=== PATIENT | female | born 1930 | race Caucasian/White ===

== ENCOUNTER → 2016-10-03 | Outpatient (CLI) | payer BC ==
[~2016-10-03] MED LIST: CALC500C70 PO; CHOL20009 PO; HYDR-5688 PO; IBAN150T PO; LEVO112T2 PO; MULT-190 PO; MULT-513 PO; OMEG10007 PO; SYN100 PO; TIMO0.2528 OPB; TIMO0.2530 OP
[2016-10-03 15:53] LABS: BASO % 0.2 %; BASO ABS # 0.02 K/uL (0-0.2); COMPLETE YES; EOS % 2.1 %; HEMATOCRIT 42.9 % (37-47); IG% 0.2 %; LYMPH ABS # 1.45 K/uL (1.2-3.4); MEAN CELL VOLUME 99.1 fL (80-100); MEAN CORPUSCULAR HEMOGLOBIN 31.9 pg (25-34); MEAN CORPUSCULAR HGB CONC 32.2 g/dl (32-36); MEAN PLATELET VOLUME 10.6 fL (7.4-10.4); MONO % 10.4 %; NEUT % 71.1 %; PLATELET COUNT 195 K/uL (130-400); RED BLOOD COUNT 4.33 M/uL (4.2-5.4); WHITE BLOOD COUNT 9.06 K/uL (4.8-10.8)
[2016-10-03 16:03] LABS: BLOOD UREA NITROGEN 24 mg/dl (7-18); BUN/CREATININE RATIO 28.3 (10-20); CALCIUM 10.2 mg/dl (8.5-10.1); CARBON DIOXIDE 31 mmol/L (21-32); CHLORIDE 102 mmol/L (98-107); CREATININE 0.84 mg/dl (0.60-1.20); GLUCOSE 91 mg/dl (70-99); SODIUM 139 mmol/L (136-145)
== END | disposition home or self-care (01) ==
LOC: C.LAB1850 14:30
PROVIDERS: ATTEND Internal Medicine
DX: E83.52 Hypercalcemia (principal); E03.9 Hypothyroidism, unspecified; E21.3 Hyperparathyroidism, unspecified

== ENCOUNTER → 2016-12-27 | Outpatient (CLI) | payer BC ==
[~2016-12-27] MED LIST changes: -TIMO0.2530 OP; +TIMO4SOL2 OP
[2016-12-27 12:58] LABS: BLOOD UREA NITROGEN 18 mg/dl (7-18); BUN/CREATININE RATIO 25.9 (10-20); CALCIUM 10.6 mg/dl (8.5-10.1); CARBON DIOXIDE 34 mmol/L (21-32); CHLORIDE 106 mmol/L (98-107); CREATININE 0.69 mg/dl (0.60-1.20); GLUCOSE 86 mg/dl (70-99); POTASSIUM 4.1 mmol/L (3.5-5.1); SODIUM 143 mmol/L (136-145)
== END | disposition home or self-care (01) ==
LOC: C.LAB1850 11:34
PROVIDERS: ATTEND Internal Medicine
DX: E03.9 Hypothyroidism, unspecified (principal); E21.3 Hyperparathyroidism, unspecified

== ENCOUNTER → 2017-01-13 | Outpatient (CLI) | payer BC ==
--- NOTE | 2017-01-13 16:01 | MAMMOGRAPHY REPORT ---
BILATERAL DIGITAL SCREENING MAMMOGRAM WITH CAD: 01/13/2017 CLINICAL HISTORY: Routine screening. Patient has no complaints. TECHNIQUE: Bilateral CC and MLO views were obtained. Current study was also evaluated with a Compute r Aided Detection (CAD) system. COMPARISON: Comparison is made to exams dated: 01/10/2016 mammogram, 08/18/2014 mammogram, 06/22/2013 ma mmogram, 05/21/2012 mammogram, 04/30/2011 mammogram, and 01/24/2010 mammogram - [facility] enter. BREAST COMPOSITION: The tissue of both breasts is heterogeneously dense, which may obscure small mas ses. FINDINGS: There is a new grouping of microcalcifications in the upper outer anterior left breast, fo r which additional spot magnification views are recommended. There is minimal vascular calcification in the anterior right breast. No other suspicious mass, arch itectural distortion or cluster of microcalcifications is seen bilaterally. IMPRESSION: ACR BI-RADS CATEGORY 0: INCOMPLETE EVALUATION: NEED ADDITIONAL IMAGING EVALUATION The new grouping of microcalcifications in the upper outer anterior left breast needs additional eval uation. The patient will be called to schedule an appointment. Approximately 10% of breast cancers are not detected with mammography. A negative mammographic report should not delay biopsy if a clinically suggestive mass is present. Ita Cardoza M.D. ay/:01/13/2017 14:20:32 Hog Killer: Suzette MARIA(R)(M)(BD), [facility] letter sent: Addl Imaging 0 BI-RADS Code: ACR BI-RADS Category 0: Incomplete Evaluation: Need Additional Imaging Evaluation
== END ==
LOC: C.MAMM 13:58
PROVIDERS: ATTEND Obstetrics & Gynecology
DX: Z12.31 Encounter for screening mammogram for malignant neoplasm of breast (principal)

== ENCOUNTER 2017-01-20 12:24 | Emergency (ER) | payer BC ==
[~2017-01-20] VITALS: Ht 160 cm; Wt 47.4 kg
[~2017-01-20 12:24] MED LIST changes: -CHOL20009 PO; -HYDR-5688 PO; -IBAN150T PO; -LEVO112T2 PO; -TIMO4SOL2 OP
[2017-01-20 12:33] VITALS: TEMP 36.4; Ht 160 cm; Wt 47.4 kg
[2017-01-20] MEDS ORDERED: HYDROCODONE/ACETAMOPHEN 5/325MG TAB PO STA (12:46)
[2017-01-20] MEDS ORDERED: IBAN150T PO (12:56)
[2017-01-20] MEDS ORDERED: CHOL20009 PO (12:56)
[2017-01-20] MEDS ORDERED: LEVO112T2 PO (12:56)
[2017-01-20] MEDS ORDERED: TIMO4SOL2 OP (12:56)
--- NOTE | 2017-01-20 13:14 | EMERGENCY ROOM VISIT NOTE ---
ED Visit Note First contact with patient: 12:39 I have seen and examined this patient with Angely Burch and generally agree with the treatment plan as discussed. Problem List Medical Problems: (1) Thyroidectomy Status: Resolved Current/Historical Medications Scheduled Calcium/Vitamin D (Os-Jaxson 500 Plus D), 1 TAB PO DAILY Cholecalciferol (Vitamin D), 4,000 UNITS PO DAILY Fish Oil ([place]so[place]-3), 1 CAP PO DAILY Ibandronate Sodium (Boniva), 150 MG PO MONTHLY Levothyroxine Sodium (Synthroid), 112 MCG PO DAILY Multivitamins/Minerals (Mvi With Minerals), 1 TAB PO DAILY Ocuvite Preservision (Ocuvite Preservision), 2 TAB PO DAILY Miscellaneous Medications Timolol Maleate (Ophth) (Timolol Maleate Ophthalmi), 1 DROP OP Allergies Coded Allergies: No Known Allergies (Unverified , 01/20/17) Vital Signs Date Time Temp Pulse Resp B/P (MAP) Pulse Ox O2 Delivery O2 Flow Rate FiO2 01/20/17 12:33 36.4 66 17 177/84 97 Room Air Medications Administered Medications (Trade) Dose Ordered Sig/Harry Route Start Time Stop Time Status Last Admin Dose Admin Acetaminophen/ Hydrocodone Bitart ([place] 5/325 Tab) 1 tab NOW STAT PO 01/20/17 12:46 01/20/17 12:48 DC 01/20/17 12:51 1 TAB Departure Information Referrals Pro,Sharif Tai M.D. (PCP) Patient Instructions My [facility]
--- NOTE | 2017-01-20 13:33 | DIAGNOSTIC IMAGING REPORT ---
LEFT RIBS UNILATERAL WITH PA CHEST CLINICAL HISTORY: Left rib injury with pain. COMPARISON STUDY: None. FINDINGS: No pleural effusions. No pneumothorax. The lungs are hyperexpanded with apical predominant emphysematous changes. The heart is normal in size. Biapical reticulonodular thickening is likely chronic. Slightly displaced left lateral fourth through seventh rib fractures. IMPRESSION: Left lateral fourth through seventh rib fractures. No pneumothorax. Electronically signed by: Chester Rueda M.D. 01/20/2017 1:32 PM Dictated Date/Time: 01/20/2017 1:28 PM
[2017-01-20] MEDS ORDERED: HYDR-5688 PO (14:21)
[2017-01-20 14:24] VITALS: BP 157/81; PULSE 69; O2SAT 96
--- NOTE | 2017-01-20 15:42 | EMERGENCY ROOM VISIT NOTE ---
History First contact with patient: 12:39 Chief Complaint: FALL Stated Complaint: FELL-LAC. ON ARM, SORE CHEST, POSS. CRACKED RIB History of Present Illness The patient is a 86 year old female who presents to the Emergency Room with complaints of left rib pain and left arm laceration. The patient states that she went to get out of the bathtub this morning and lost her balance and struck her left forearm on the sharp metal edge of the top of and landed on her left ribs. The patient denies any dizziness prior to fall. The patient denies any shortness of breath. The patient's tetanus is up-to-date. The patient states that she was having a mammogram this morning and they noticed the open area on her left arm and watch the area and applied bandages. She also commented on her left rib pain and they told her to come to the emergency room. Review of Systems 10 system review was performed and was negative unless stated otherwise history of present illness. Past Medical/Surgical History Medical Problems: (1) Thyroidectomy Social History Smoking Status: Never Smoker Alcohol Use: occasionally Marital Status: Occupation Status: retired Current/Historical Medications Scheduled Calcium/Vitamin D (Os-Jaxson 500 Plus D), 1 TAB PO DAILY Cholecalciferol (Vitamin D), 4,000 UNITS PO DAILY Fish Oil ([place]-3), 1 CAP PO DAILY Ibandronate Sodium (Boniva), 150 MG PO MONTHLY Levothyroxine Sodium (Synthroid), 112 MCG PO DAILY Multivitamins/Minerals (Mvi With Minerals), 1 TAB PO DAILY Ocuvite Preservision (Ocuvite Preservision), 2 TAB PO DAILY Scheduled PRN Hydrocodone/Acetaminophen 5MG/325MG ([place] 5MG/325MG), 1 TABLET PO Q6 PRN for Pain Miscellaneous Medications Timolol Maleate (Ophth) (Timolol Maleate Ophthalmi), 1 DROP OP Allergies Coded Allergies: No Known Allergies (Unverified , 01/20/17) Physical Exam Vital Signs Date Time Temp Pulse Resp B/P (MAP) Pulse Ox O2 Delivery O2 Flow Rate FiO2 01/20/17 14:24 69 18 157/81 96 01/20/17 12:33 36.4 66 17 177/84 97 Room Air Pain Rating (0-10): 4.0 Physical Exam GENERAL: 86-year-old white female appears younger than stated age. She is in no acute distress. MENTAL Status: Alert and oriented 3. NECK: Supple, no lymphadenopathy noted. No carotid bruits noted. LUNGS: Clear auscultation without wheezes rales or rhonchi. CARDIAC: Regular rate and rhythm without murmur. Pulses is full and equal throughout. CHEST WALL: No gross bony deformity noted. No erythema or edema noted. The patient is severely tender to palpation over the left lateral lower ribs. Otherwise chest wall is nontender. LEFT FOREARM: There is approximately a 5 cm skin tear on the medial aspect of the forearm. The wound looks clean. Medical Decision & Procedures ER Provider Diagnostic Interpretation: LEFT RIBS UNILATERAL WITH PA CHEST CLINICAL HISTORY: Left rib injury with pain. COMPARISON STUDY: None. FINDINGS: No pleural effusions. No pneumothorax. The lungs are hyperexpanded with apical predominant emphysematous changes. The heart is normal in size. Biapical reticulonodular thickening is likely chronic. Slightly displaced left lateral fourth through seventh rib fractures. IMPRESSION: Left lateral fourth through seventh rib fractures. No pneumothorax. Electronically signed by: Chester Rueda M.D. 01/20/2017 1:32 PM Medications Administered Medications (Trade) Dose Ordered Sig/Harry Route Start Time Stop Time Status Last Admin Dose Admin Acetaminophen/ Hydrocodone Bitart ([place] 5/325 Tab) 1 tab NOW STAT PO 01/20/17 12:46 01/20/17 12:48 DC 01/20/17 12:51 1 TAB ED Course The patient was evaluated. The patient was given [place] 5/325 mg one tablet by mouth for pain. X-ray of the left ring was ordered and interpreted by the radiologist as above with fractures involving the left fourth through seventh ribs. The patient was informed of the findings. The left forearm skin tear was cleansed and Steri-Strips applied. Antibiotic ointment and a bandage was applied. The patient was also informed that her blood pressure was elevated at 177/84 on arrival to the ER and that she would require a blood pressure recheck at her family doctor in 2 days. The patient verbalized understanding. The patient was independently evaluated by Dr. Piper who agreed with treatment plan. I discussed with the patient the option of admission due to the multiple rib fractures. The patient refused. The patient was discharged home in stable condition. Medical Decision Differential diagnosis include rib contusion versus rib fracture Impression Primary Impression: Ribs, multiple fractures Additional Impression: Skin tear of left forearm without complication Departure Information Dispostion Home / Self-Care Condition GOOD Prescriptions Hydrocodone/Acetaminophen 5MG/325MG ([place] 5MG/325MG) Tab 1 TABLET PO Q6 Y for Pain, #12 TAB For Initial Treatment Prov: Alix Burch PA-C 01/20/17 Forms HOME CARE DOCUMENTATION FORM, IMPORTANT VISIT INFORMATION Patient Instructions My [facility] [place] Additional Instructions Take [place] as directed for pain. Do not drive while taking the [place]. Spirometry several times a day for 10 days. Keep Steri-Strips in place until they fall off. Keep wound dry. Antibiotic ointment and a bandage for 3 days. Any signs of infection, follow-up with your family doctor. Recommend follow-up with your family doctor in 2 days for blood pressure check since her blood pressure in the emergency room initially was 177/84. Problem Qualifiers Primary Impression: Ribs, multiple fractures Encounter type: initial encounter Fracture type: closed Laterality: left Qualified Codes: S22.42XA - Multiple fractures of ribs, left side, initial encounter for closed fracture Additional Impression: Skin tear of left forearm without complication Encounter type: initial encounter Qualified Codes: S51.812A - Laceration without foreign body of left forearm, initial encounter
== END 2017-01-20 14:25 | disposition home or self-care (01) ==
LOC: C.EDB 12:26 → C.EDD 14:25
DX: S22.42XA Multiple fractures of ribs, left side, initial encounter for closed fracture (principal); S51.812A Laceration without foreign body of left forearm, initial encounter; W19.XXXA Unspecified fall, initial encounter; Y92.012 Bathroom of single-family (private) house as the place of occurrence of the external cause; Z79.899 Other long term (current) drug therapy; R92.0 Mammographic microcalcification found on diagnostic imaging of breast

== ENCOUNTER → 2017-01-20 | Outpatient (CLI) | payer BC ==
--- NOTE | 2017-01-20 13:13 | MAMMOGRAPHY REPORT ---
UNILATERAL LEFT DIGITAL DIAGNOSTIC MAMMOGRAM: 01/20/2017 CLINICAL HISTORY: 86-year-old woman called back from screening mammography for a possible new groupin g of microcalcifications in the left upper outer anterior breast. Possible history of breast cancer in the patient's mother. TECHNIQUE: Spot magnification left CC and ML views were obtained. COMPARISON: Comparison is made to exams dated: 01/13/2017 mammogram, 01/10/2016 mammogram, 08/18/2014 mamm ogram, 06/22/2013 mammogram, 05/21/2012 mammogram, and 04/30/2011 mammogram - [facility] nter. BREAST COMPOSITION: The tissue of the left breast is heterogeneously dense, which may obscure small masses. FINDINGS: There is a new small grouping of 3 round and punctate microcalcifications in the upper out er anterior left breast. On the full-field screening mammogram dated 01/13/2017 there is also possib le associated nodularity which does not definitely persist with the additional spot magnification vie ws. A few other scattered benign-appearing punctate microcalcifications are seen in the anterior lef t breast. No obvious mass, focal area of architectural distortion or developing asymmetry. The microcalcifications have benign morphology but remain indeterminate given their interval developm ent. Options of tissue sampling via stereotactic biopsy versus short interval follow-up diagnostic m ammograms were provided. We will opt to follow this very small grouping of microcalcifications in 6 months. IMPRESSION: ACR-BI-RADS CATEGORY 3: PROBABLY BENIGN The 3 new grouped round and punctate microcalcifications in the upper outer anterior left breast coul d represent benign fibrocystic changes or a degenerating fibroadenoma. However, given the interval d evelopment, a short interval follow-up diagnostic left mammogram including spot magnification views i s recommended to ensure stability in 6 months. These results and recommendations were discussed with the patient at the time of the exam. She tenta tively scheduled a follow-up appointment prior to leaving our department. Approximately 10% of breast cancers are not detected with mammography. A negative mammographic report should not delay biopsy if a clinically suggestive mass is present. Ita Cardoza M.D. ay/:01/20/2017 12:24:45 Investments Manager: Estefany Siddiqi, [facility] letter sent: Follow Up Recommended 3 BI-RADS Code: ACR-BI-RADS Category 3: Probably Benign
== END | disposition home or self-care (01) ==
LOC: C.MAMM 11:22
PROVIDERS: ATTEND Obstetrics & Gynecology
DX: R92.0 Mammographic microcalcification found on diagnostic imaging of breast (principal)

== ENCOUNTER → 2017-02-25 | Outpatient (CLI) | payer BC ==
[~2017-02-25] MED LIST changes: +CHOL20009 PO; +HYDR-5688 PO; +IBAN150T PO; +LEVO112T2 PO; -SYN100 PO; -TIMO0.2528 OPB; +TIMO0.2530 OP
== END | disposition home or self-care (01) ==
LOC: C.MAMM 14:32
PROVIDERS: ATTEND Internal Medicine
DX: M81.0 Age-related osteoporosis without current pathological fracture (principal); E21.3 Hyperparathyroidism, unspecified; R07.81 Pleurodynia

== ENCOUNTER → 2017-05-09 | Outpatient (CLI) | payer BC ==
[2017-05-09 13:08] LABS: BASO % 0.5 %; BASO ABS # 0.03 K/uL (0-0.2); COMPLETE YES; EOS % 1.2 %; IG% 0.2 %; LYMPH % 21.8 %; MEAN CELL VOLUME 96.6 fL (80-100); MEAN CORPUSCULAR HEMOGLOBIN 31.1 pg (25-34); MEAN CORPUSCULAR HGB CONC 32.2 g/dl (32-36); MEAN PLATELET VOLUME 10.2 fL (7.4-10.4); MONO % 9.8 %; NEUT % 66.5 %; PLATELET COUNT 207 K/uL (130-400); RED BLOOD COUNT 4.76 M/uL (4.2-5.4); WHITE BLOOD COUNT 6.43 K/uL (4.8-10.8)
[2017-05-09 13:29] LABS: ALT/SGPT 20 U/L (12-78); BLOOD UREA NITROGEN 15 mg/dl (7-18); BUN/CREATININE RATIO 18.7 (10-20); CALCIUM 10.8 mg/dl (8.5-10.1); CARBON DIOXIDE 30 mmol/L (21-32); CHLORIDE 104 mmol/L (98-107); CREATININE 0.79 mg/dl (0.60-1.20); GLUCOSE 82 mg/dl (70-99); POTASSIUM 4.2 mmol/L (3.5-5.1); SODIUM 139 mmol/L (136-145)
[2017-05-09 13:32] LABS: ALB/GLOB RATIO 1.1 (0.9-2); ALKALINE PHOSPHATASE 103 U/L (45-117); AST/SGOT 23 U/L (15-37)
== END | disposition home or self-care (01) ==
LOC: C.LAB1850 10:27
PROVIDERS: ATTEND Internal Medicine
DX: E21.3 Hyperparathyroidism, unspecified (principal); R07.81 Pleurodynia; E55.9 Vitamin D deficiency, unspecified

== ENCOUNTER → 2017-07-23 | Outpatient (CLI) | payer BC ==
[~2017-07-23] MED LIST changes: -TIMO0.2530 OP; +TIMO4SOL2 OP
--- NOTE | 2017-07-23 16:02 | MAMMOGRAPHY REPORT ---
UNILATERAL LEFT DIGITAL DIAGNOSTIC MAMMOGRAM TOMOSYNTHESIS WITH CAD: 07/23/2017 CLINICAL HISTORY: 87-year-old woman presents for follow-up in the left breast for a benign-appearing grouping of three round and punctate microcalcifications in the upper outer quadrant. TECHNIQUE: Left breast CC and MLO 2-D and tomosynthesis images, spot magnification left CC and ML vi ews were obtained. Current study was also evaluated with a Computer Aided Detection (CAD) system. COMPARISON: Comparison is made to exams dated: 01/20/2017 mammogram, 01/13/2017 mammogram, 01/10/2016 gurmeet mogram, 08/18/2014 mammogram, 06/22/2013 mammogram, and 05/21/2012 mammogram - [facility] nt. BREAST COMPOSITION: The tissue of the left breast is heterogeneously dense, which may obscure small masses. FINDINGS: The glandular pattern of the left breast is similar to several prior mammograms. There ar e diffuse faint punctate microcalcifications throughout the left breast and minimal vascular calcific ation. No new suspicious mass, area of distortion or new grouping of microcalcifications is identifi ed. The spot magnification views redemonstrate a loose grouping of 3 round and punctate microcalcificatio ns with possible associated nodularity in the upper outer quadrant of the left breast, 2 cm distal to the nipple. These calcifications are unchanged in size, number and distribution comparing to the sp ot magnification views obtained 01/20/2017. Although they have been stable over the past 6 months, t hey were not seen mammograms prior to 2017 and therefore another short interval follow-up left diagno stic mammogram including spot magnification views is recommended to ensure longer stability. IMPRESSION: ACR-BI-RADS CATEGORY 3: PROBABLY BENIGN There is a stable grouping of 3 round and punctate microcalcifications and associated nodularity in t he upper outer quadrant of the left breast, 2 cm from the nipple, which are unchanged compared to the spot magnification views obtained in January 2017. Another short interval follow-up left diagnostic ma mmogram including spot magnification views is recommended in 6 months to ensure longer stability. An nual right mammography will also be due at that time. These results and recommendations were discussed with the patient at the time of the exam. Approximately 10% of breast cancers are not detected with mammography. A negative mammographic report should not delay biopsy if a clinically suggestive mass is present. Ita Cardoza M.D. ay/:07/23/2017 14:12:39 Credit Card Control Clerk: Eryn MARIA(Sandeep)(Debbie), [facility] letter sent: Follow Up Recommended 3 BI-RADS Code: ACR-BI-RADS Category 3: Probably Benign
== END | disposition home or self-care (01) ==
LOC: C.MAMM 13:34
PROVIDERS: ATTEND Obstetrics & Gynecology
DX: R92.0 Mammographic microcalcification found on diagnostic imaging of breast (principal); N63.21 Unspecified lump in the left breast, upper outer quadrant

== ENCOUNTER → 2017-11-27 | Outpatient (CLI) | payer BC ==
[~2017-11-27] MED LIST changes: -HYDR-5688 PO
[2017-11-27 16:10] LABS: BLOOD UREA NITROGEN 14 mg/dl (7-18); CALCIUM 10.3 mg/dl (8.5-10.1); CARBON DIOXIDE 30 mmol/L (21-32); CREATININE 0.72 mg/dl (0.60-1.20); GLUCOSE 79 mg/dl (70-99); POTASSIUM 4.1 mmol/L (3.5-5.1); SODIUM 139 mmol/L (136-145)
== END | disposition home or self-care (01) ==
LOC: C.LAB1850 14:36
PROVIDERS: ATTEND Internal Medicine
DX: E21.3 Hyperparathyroidism, unspecified (principal); E03.9 Hypothyroidism, unspecified

== ENCOUNTER → 2018-03-11 | Outpatient (CLI) | payer BC ==
--- NOTE | 2018-03-12 14:56 | MAMMOGRAPHY REPORT ---
BILATERAL DIGITAL DIAGNOSTIC MAMMOGRAM TOMOSYNTHESIS WITH CAD: 03/11/2018 CLINICAL HISTORY: Patient presents for a close follow-up evaluation of the left breast for 3 loosely grouped calcifications and associated nodularity in the quadrant anteriorly. Also due for annual bila teral screening mammograms. TECHNIQUE: Bilateral CC and MLO 2D and tomosynthesis images, spot magnification left CC and ML views were obtained. Current study was also evaluated with a Computer Aided Detection (CAD) system. COMPARISON: Comparison is made to exams dated: 07/23/2017 mammogram, 01/20/2017 mammogram, 01/13/2017 m ammogram, 01/10/2016 mammogram, 08/18/2014 mammogram, and 04/30/2011 mammogram - [facility] ter. BREAST COMPOSITION: The tissue of both breasts is heterogeneously dense, which may obscure small mass es. FINDINGS: The spot magnification views of the left breast redemonstrate a small loose grouping of rou nd microcalcifications and associated nodularity measure the upper outer anterior left breast. No ne w or increasing calcifications or nodularity identified. This finding is stable for just over one ye ar and is likely benign, probably fat necrosis. However, another 12 month follow-up diagnostic evalu ation is recommended to ensure at least 2 years of stability to confirm benignity. There are mild vascular calcifications in the breasts. No other suspicious masses, asymmetries, area s of architectural distortion or calcifications are seen bilaterally. IMPRESSION: ACR-BI-RADS CATEGORY 3: PROBABLY BENIGN 1. Stable mammographic appearance of the breasts, including a probably benign loose grouping of 3 ca lcifications and associated nodularity in the upper outer left breast, without definite mammographic evidence of malignancy bilaterally. Recommend another 12 month follow-up diagnostic evaluation of th e calcifications in the left breast. Annual right mammography will also be due at that time. These results and recommendations were discussed with the patient at the time of the exam. Some breast cancers are not detected with mammography. A negative mammographic report should not bijan y biopsy if a clinically suggestive mass is present. Ita Cardoza M.D. ay/:03/11/2018 14:54:37 Forging Dies Final Finisher: RT Isaiah(Sandeep)(M), [facility] letter sent: Follow Up Recommended 3 BI-RADS Code: ACR-BI-RADS Category 3: Probably Benign
== END | disposition home or self-care (01) ==
LOC: C.MAMM 14:18
PROVIDERS: ATTEND Obstetrics & Gynecology
DX: R92.1 Mammographic calcification found on diagnostic imaging of breast (principal)